=== PATIENT | male | born 1940 | race Caucasian/White ===

== ENCOUNTER 2025-03-06 02:05 | Inpatient (IN) | payer OTHER ==
[~2025-03-06] VITALS: Ht 172.7 cm; Wt 80.2 kg
--- NOTE | 2025-03-06 02:32 | ED.PDOC ---
Epistaxis- HPI HPI Comments 85 YEAR OLD MALE PRESENTS TO ER WITH COMPLAINTS OF NOSE BLEED X 45 MINS. PATIENT PRESENTS VIA EMS, STATING THAT HE STARTED EXPERIENCING A NOSE BLEED FROM BILATERAL NASAL FLARES 45 MINS PRIOR TO ARRIVAL TO ER WHEN HE WENT TO BLOW HIS NOSE AT HOME. NOTES HE DOES TAKE XARELTO 20 MG DAILY FOR PMH OF AFIB. PATIENT PRESENTS TO ER WITH HEAVY ACTIVE NOSE BLEEDING NOTED FROM BILATERAL NASAL FLARES WITH CLOTTING APPRECIATED AND BP 158/83, IN NO DISTRESS. PATIENT REPORTS THIS IS THE WORST NOSE BLEED HE'S EVER HAD. DENIES HEADACHE, INJURY, NOSE PICKING, DIZZINESS, N/V OR ANY FURTHER SYMPTOMS/COMPLAINTS Chief Complaint: Nose Bleed Time Seen by MD: 02:19 Primary Care Provider: UNKNOWN Reviewed Notes: Nurses Notes, Medications, Allergies Allergies: Coded Allergies: Penicillins (Verified Allergy, Unknown, 03/06/25) Home Meds Reported Medications Rivaroxaban (Xarelto Tablet) 20 Mg Tb, 1 TAB PO DAILY 03/06/25 Omeprazole ([facility] Omeprazole Odt) 20 Mg Tab, 40 MG PO DAILY 03/06/25 Tamsulosin Hcl (Tamsulosin Hcl) 0.4 Mg Cap, 0.4 MG PO DAILY 03/06/25 Atorvastatin Calcium (ATORVASTATIN CALCIUM) 20 Mg Tab, 20 MG PO HS 03/06/25 Donepezil Hydrochloride (DONEPEZIL HCL) 5 Mg Tab, 1 TAB PO DAILY 03/06/25 Memantine Hydrochloride (Memantine HCl) 10 Mg Tab, 1 TAB PO BID 03/06/25 Metoprolol Succinate (Metoprolol Succinate Er) 25 Mg Tab, 1 TAB PO DAILY 03/06/25 Information Source: Patient Mode of Arrival: EMS Past Medical History PAST MEDICAL HISTORY: AFIB, High Lipids, HTN Surgical History: Denies all surgeries Family History Family History: Unknown Social History Smoker: Non-Smoker Alcohol: Denies ETOH Use Drugs: Denies Drug Use Lives In: Home Constitutional: denies: chills, diaphoresis, fatigue, fever, malaise, sweats, weakness, others EENTM: reports: others ( STATED IN HPI) Respiratory: denies: cough, hemoptysis, orthopnea, SOB at rest, shortness of breath, SOB with excertion, stridor, wheezing, others Cardiovascular: denies: chest pain, dizzy spells, diaphoresis, Dyspnea on exertion, edema, irregular heart beat, left arm pain, lightheadedness, palpitations, PND, syncope, others Gastrointestinal: denies: abdomen distended, abdominal pain, blood streaked bowels, constipated, diarrhea, dysphagia, difficulty swallowing, hematemesis, melena, nausea, poor appetite, poor fluid intake, rectal bleeding, rectal pain, vomiting, others Genitourinary: denies: burning, dysuria, flank pain, frequency, hematuria, incontinence, penile discharge, penile sore, pain, testicle pain, testicle s welling, urgency, others Neurological: denies: dizziness, fainting, headache, left sided numbness, left sided weakness, numbness, paresthesia, pre-existing deficit, right sided numbness, right sided weakness, seizure, speech problems, tingling, tremors, weakness, others Musculoskeletal: denies: back pain, gout, joint pain, joint swelling, muscle pain, muscle stiffness, neck pain, others Integumetry: denies: bruises, change in color, change in hair/nails, dryness, laceration, lesions, lumps, rash, wounds, others Allergic/Immunocompromised: denies: Difficulty Healing, Frequent Infections, Hives, Itching, others Hematologic/Lymphatic: denies: anemia, blood clots, easy bleeding, easy bruising, swollen glands, others Endocrine: denies: excessive hunger, excessive sweating, excessive thirst, excessive urination, flushing, intolerance to cold, intolerance to heat, unexplained weight gain, unexplained weight loss, others Psychiatric: denies: anxiety, bipolar disorder, depression, hopeless, panic disorder, schizophrenia, sleepless, suicidal, others Physical Exam General Appearance: No Apparent Distress HEENT: PERRL/EOMI, Pharynx Normal, TMs Normal, Other (HEAVY ACTIVE BILATERAL NOSE BLEEDING NOTED, GREATER ON LEFT WITH CLOTTING APPRECIATED - UNABLE TO APPRECIATE SOURCE OF BLEEDING) Neck: Full Range of Motion, Non-Tender, Normal Respiratory: Chest Non-Tender, Lungs Clear, No Accessory Muscle Use, No Respiratory Distress, Normal Breath Sounds Cardiovascular: No Murmur, No Gallop, Regular Rate/Rhythm Breast Exam: Deferred Gastrointestinal: NOT DONE Genitalia: Deferred Pelvic: Deferred Rectal: Deferred Extremities: Normal capillary refill, Normal range of motion 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 Was a procedure done?: No Sedation Sedation?: No Differential Diagnosis (NSB) Differential Diagnosis: Anterior Nasal Bleed, Foreign Body, Hypertension, Coa gulopathy X-Ray, Labs, Meds, VS Vital Signs Date Time Temp Pulse Resp B/P (MAP) Pulse Ox O2 Delivery O2 Flow Rate FiO2 03/06/25 06:03 164/97 (119) 03/06/25 05:41 183/121 03/06/25 05:34 106 14 96 Room Air* 0 21 03/06/25 05:34 97.9 91 15 183/121 (141) 96 97.9 03/06/25 05:34 91 15 96 Room Air* 0 21 03/06/25 04:00 92 03/06/25 03:30 98.1 98 19 146/126 (133) 98 98.1 03/06/25 02:11 Room Air 03/06/25 02:11 98.2 85 16 158/83 (108) 96 98.2 03/06/25 02:11 98.2 85 16 158/83 (108) 96 98.2 Lab Test 03/06/25 02:32 Range/Units White Blood Count 4.0 L 4.4-10.8 10^3/uL Red Blood Count 4.41 L 4.5-5.90 10^6/uL Hemoglobin 12.9 L 13.5-17.5 g/dL Hematocrit 39.3 L 41.0-53.0 % Mean Corpuscular Volume 89.2 80.0-100.0 fL Mean Corpuscular Hemoglobin 29.4 28.0-32.0 pg Mean Corpuscular Hemoglobin Concent 32.9 32.0-36.0 g/dL Red Cell Distribution Width 15.9 H 11.8-14.3 % Platelet Count 124 L 140-450 10^3/uL Mean Platelet Volume 8.6 6.9-10.8 fL Neutrophils (%) (Auto) 62.2 37.0-80.0 % Lymphocytes (%) (Auto) 24.3 10.0-50.0 % Monocytes (%) (Auto) 10.7 0.0-12.0 % Eosinophils (%) (Auto) 2.1 0.0-7.0 % Basophils (%) (Auto) 0.7 0.0-2.0 % Neutrophils # (Auto) 2.5 1.6-8.6 10 ^3/uL Lymphocytes # (Auto) 1.0 0.4-5.4 10 ^3/uL Monocytes # (Auto) 0.4 0-1.3 10 ^3/uL Eosinophils # (Auto) 0.1 0-0.8 10 ^3/uL Basophils # (Auto) 0 0-0.2 10 ^3/uL Nucleated Red Blood Cells 0.1 % Prothrombin Time 13.5 H 9.3-11.8 sec Prothrombin Time INR 1.31 H 0.9-1.15 Activated Partial Thromboplast Time 34.6 H 24.5-34.5 SEC Sodium Level 142 136-145 mmol/L Potassium Level 4.3 3.5-5.1 mmol/L Chloride Level 108 H 98-107 mmol/L Carbon Dioxide Level 27 20-31 mmol/L Anion Gap 7 5-15 Blood Urea Nitrogen 22 9-23 mg/dL Creatinine 1.18 0.700-1.30 mg/dL Glomerular Filtration Rate Calc 61 >90 mL/min BUN/Creatinine Ratio 18.6 10.0-20.0 Serum Glucose 119 H 74-106 mg/dL Calcium Level 9.3 8.7-10.4 mg/dL Current Medications Medications (Trade) Dose Ordered Sig/Fabian Route Start Time Stop Time Status Last Admin Sodium Chloride 500 ml @ 500 mls/hr Q1H ONCE IV 03/06/25 05:00 03/06/25 05:59 DC 03/06/25 05:28 Hydralazine HCl (Apresoline Injection) 5 mg ONCE ONCE IV 03/06/25 05:30 03/06/25 05:31 DC 03/06/25 05:41 CBC REVIEWED - HEMOGLOBIN 12.9, PLATELETS 124 BMP REVIEWED WITHOUT ANY SIGNIFICANT ABNORMALITY PT/PTTT REVIEWED- PT 13.5, PT INR 1.31 TYPE AND SCREEN ORDERED AFRIN AND NOSE WAS PINCHED USING 2 TONGUE DEPRESSORS WITHOUT SUCCESS LEFT SIDED POSTERIOR RHINO-ROCKET PLACED AT BEDSIDE BY DR. ISAAC- PATIENT TOLERATED WELL WITHOUT ANY COMPLICATION PATIENT RESTING COMFORTABLY AT BEDSIDE, IN NO DISTRESS WITH BLEEDING FROM BILAT ERAL NASAL FLARES CONTROLLED POST RHINO-ROCKET PLACEMENT PATIENT ON XARELTO 20 MG WITH LEFT SIDED POSTERIOR RHINO-ROCKET PLACED PATIENT REQUIRES ADMISSION FOR NEED FOR OBSERVATION [facility] AUTHORIZATION TO ADMIT - [id number] Time of 1ST Reevaluation: 02:30 Reevaluation 1ST: N/A Patient Education/Counseling: Diagnosis, Treatment, Prognosis, Need For Follow Up Family Education/Counseling: No Family Present Departure 1 Departure Time of Disposition: 04:36 Impression: Primary Impression: Posterior epistaxis Additional Impression: Thrombocytopenia Disposition: 09 ADMITTED INPATIENT Condition: Stable Critical Care Note Critical Care Time?: No Stability Stability form required: No Heart Score Heart Score: Heart Score Response (Comments) Value History N/A 0 EKG N/A 0 Age N/A 0 Risk Factors N/A 0 Troponin N/A 0 Total 0 RAÚL MUNIZ Mar 06, 2025 02:32
[2025-03-06] MEDS: OXYMETAZOLINE HCL 0.05 % NASAL SPRAY 15ML EACHNOSTRI ONE (02:52)
[2025-03-06 02:54] LABS: Basophils # (auto) 0 10 ^3/uL (0-0.2); Basophils % (auto) 0.7 % (0.0-2.0); Eosinophils # (auto) 0.1 10 ^3/uL (0-0.8); Eosinophils % (auto) 2.1 % (0.0-7.0); Hematocrit 39.3 % (41.0-53.0); Hemoglobin 12.9 g/dL (13.5-17.5); Lymphocytes % (auto) 24.3 % (10.0-50.0); Mean Corpuscular Hemoglobin 29.4 pg (28.0-32.0); Mean Corpuscular Hgb Conc. 32.9 g/dL (32.0-36.0); Mean Corpuscular Volume 89.2 fL (80.0-100.0); Monocytes # (auto) 0.4 10 ^3/uL (0-1.3); Monocytes % (auto) 10.7 % (0.0-12.0); Neutrophils # (auto) 2.5 10 ^3/uL (1.6-8.6); Neutrophils % (auto) 62.2 % (37.0-80.0); Nucleated Red Blood Cells % 0.1 %; Platelet Count (auto) 124 10^3/uL (140-450); Red Blood Cells 4.41 10^6/uL (4.5-5.90); Red Cell Distribution Width 15.9 % (11.8-14.3)
[2025-03-06 03:12] LABS: INR 1.31 (0.9-1.15); Partial Thromboplastin Time 34.6 SEC (24.5-34.5); Prothrombin Time 13.5 sec (9.3-11.8)
[2025-03-06 03:20] LABS: Potassium 4.3 mmol/L (3.5-5.1); Sodium 142 mmol/L (136-145)
[2025-03-06 03:21] LABS: Anion Gap 7 (5-15); Calcium 9.3 mg/dL (8.7-10.4); Carbon Dioxide 27 mmol/L (20-31); Chloride 108 mmol/L (98-107)
[2025-03-06 03:26] LABS: BUN/Creatinine Ratio 18.6 (10.0-20.0); Blood Urea Nitrogen 22 mg/dL (9-23)
[2025-03-06 03:33] LABS: Glucose 119 mg/dL (74-106)
[2025-03-06] MEDS: THROMBIN (BOVINE) 5000 UNIT SOL VIAL ONE (03:38)
[2025-03-06] MEDS: LIDOCAINE 1%-Mpf/Epinephrine 1:200,000 30ml VIAL ONE (03:39)
[2025-03-06] MEDS: LIDOCAINE W/ EPINEPHRINE 1.5 % INJ 5ML AMP IJ ONE (05:27)
[2025-03-06] MEDS: SODIUM CHLORIDE 0.9% 500 ML IV ONE (05:28)
[2025-03-06] MEDS: THROMBIN (BOVINE) 5000 UNIT SOL VIAL TP ONE (05:28)
[2025-03-06 05:34] VITALS: PULSE 106; PULSE 91; RESP 14; RESP 15; O2SAT 96
[2025-03-06] MEDS: hydrALAZINE HCL 20 MG/ML VL IV ONE (05:41)
--- NOTE | 2025-03-06 07:33 | DVH ---
EXAM: CT Head Without Intravenous Contrast CLINICAL INDICATION: R/O stroke TECHNIQUE: Axial computed tomography images of the head/brain without intravenous contrast. This CT exam was performed using one or more of the following dose reduction techniques: automated exposure control, adjustment of the mA and/or kV according to patient size, and/or use of iterative reconstru ction technique. CONTRAST: RADIATION DOSE: CTDIvol = 53.73 mGy, DLP = 970.61 mGy-cm COMPARISON: None FINDINGS: BRAIN AND EXTRA-AXIAL SPACES: No acute intracranial hemorrhage, midline shift or mass effect. If sy mptoms persist, further evaluation with MRI is recommended. The cerebral and cerebellar sulci are pr ominent consistent with brain atrophy. Areas of decreased attenuation in the deep cerebral white mat ter are consistent with small vessel ischemic/degenerative changes. BONES/JOINTS: Unremarkable. No acute fracture. SOFT TISSUES: Unremarkable. SINUSES: Air-fluid levels in the maxillary sinuses, likely sinus disease. MASTOID AIR CELLS: Unremarkable as visualized. No mastoid effusion. OTHER FINDINGS: . . IMPRESSION: 1. No acute intracranial hemorrhage, midline shift or mass effect. If symptoms persist, further eval uation with MRI is recommended. 2. Generalized brain atrophy. 3. Small vessel ischemic/degenerative changes.
[2025-03-06] MEDS ORDERED: HYDROcodone-ACET 5/325MG TAB PO PRN (07:45)
[2025-03-06] MEDS ORDERED: DOCUSATE SOD 100 MG CAP PO PRN (07:45)
[2025-03-06] MEDS ORDERED: ACETAMINOPHEN 325 MG TAB PO PRN (07:45)
[2025-03-06] MEDS ORDERED: ONDANSETRON HCL 4 MG/2 ML VIAL IV PRN (07:45)
[2025-03-06] MEDS ORDERED: METO25TA93 PO (07:51)
[2025-03-06] MEDS ORDERED: ATOR20TA50 PO (07:51)
[2025-03-06] MEDS ORDERED: TAMS0.4C39 PO (07:51)
[2025-03-06] MEDS ORDERED: MEMA1TAB5 PO (07:51)
[2025-03-06] MEDS ORDERED: OMEP-411 PO (07:51)
[2025-03-06] MEDS ORDERED: DONE5TAB80 PO (07:51)
--- NOTE | 2025-03-06 07:59 | DVHHP2 ---
History of Present Illness Reason for Visit: Nose bleed History of Present Illness Tamir Subramanian is an 85-year-old male with past medical history of dementia, hypertension, hyperlipidemia, BPH, and atrial fibrillation, who came in for a nose bleed. At time of assessment, patient was confused, unable to tell me what year it is, who the president is, where he is, or exactly what happened and why hi is in the hospital. He was telling me that he was outside with his neighbor helping him when the nose bleed began and the ambulance picked him up outside the house and his didn't know where he was. The nurse at the bedside, stated this was not his norm when he came in. States he was A&O x [address] of head was completed, no acute findings. Patient's outside medications reveal he is being treated for dementia/Alzheimer. 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 Smoke: No ALCOHOL: none Drugs: None Lives: with Family Domestic Violence: Neg Review of Systems Constitutional: No: Fever, Chills, Sweats, Weakness, Malaise, Other Eyes: No: Pain, Vision change, Conjunctivae inflammation, Eyelid inflammation, Other, Redness ENT: Nose discharge (nose bleed for 45 minutes); No: Ear pain, Ear discharge, Nose pain, Nose congestion, Mouth pain, Mouth swelling, Throat pain, Throat swelling, Other Respiratory: No: Cough, Dry, Shortness of breath, SOB with excertion, Wheezing, Hemoptysis, Pleuritic Pain, Sputum, Wheezing, Other Cardiovascular: No: Chest Pain, Palpitations, Orthopnea, Paroxysmal Noc. Dyspne a, Edema, Lt Headedness, Other Gastrointestinal: No: Nausea, Vomiting, Abdominal Pain, Diarrhea, Constipation, Melena, Hematochezia, Other Genitourinary: No Dysuria, No Frequency, No Incontinence, No Hematuria, No Retention, No Other Musculoskeletal: No: other, neck pain, shoulder pain, arm pain, back pain, hand pain, leg pain, foot pain Skin: No: Rash, Lesions, Jaundice, Bruising, Other Neurological: No: Weakness, Numbness, Incoordination, Change in speech, Confusion, Seizures, Other Allergies: Coded Allergies: Penicillins (Verified Allergy, Unknown, 03/06/25) Medications Current Medications Medications Dose Ordered Sig/Fabian Route Start Time Stop Time Status Last Admin Dose Admin Sodium Chloride 10 ml Q8HR IV 03/06/25 14:00 UNV Acetaminophen/ Hydrocodone Bitart 1 tab Q4HP PRN PO 03/06/25 07:45 UNV Ondansetron HCl 4 mg Q4HP PRN IV 03/06/25 07:45 UNV Docusate Sodium 100 mg BIDPRN PRN PO 03/06/25 07:45 UNV Exam Vital Signs Vital Signs Date Time Temp Pulse Resp B/P (MAP) Pulse Ox O2 Delivery O2 Flow Rate FiO2 03/06/25 06:03 164/97 (119) 03/06/25 05:34 106 14 96 Room Air* 0 21 03/06/25 05:34 97.9 97.9 General Appearance: Cooperative, mild distress, Other (Alert to self) HEENT: Atraumatic, PERRLA, Other (epistaxis with rhino rocket in left brock) Respiratory: Clear to auscultation, Normal air movement Cardiovascular: Normal S1, Normal S2, Other (atrial fibrillation) Abdominal: Normal bowel sounds, Soft Extremities: No clubbing, No cyanosis, No edema, Normal pulses Skin: No rashes, No breakdown, No significant lesion Neuro: Normal gait, Normal speech, Strength at 5/5 X4 ext Psych/Mental Status: Mental status NL, Mood NL Labs/Xrays Labs Test 03/06/25 02:32 Range/Units White Blood Count 4.0 L 4.4-10.8 10^3/uL Red Blood Count 4.41 L 4.5-5.90 10^6/uL Hemoglobin 12.9 L 13.5-17.5 g/dL Hematocrit 39.3 L 41.0-53.0 % Mean Corpuscular Volume 89.2 80.0-100.0 fL Mean Corpuscular Hemoglobin 29.4 28.0-32.0 pg Mean Corpuscular Hemoglobin Concent 32.9 32.0-36.0 g/dL Red Cell Distribution Width 15.9 H 11.8-14.3 % Platelet Count 124 L 140-450 10^3/uL Mean Platelet Volume 8.6 6.9-10.8 fL Neutrophils (%) (Auto) 62.2 37.0-80.0 % Lymphocytes (%) (Auto) 24.3 10.0-50.0 % Monocytes (%) (Auto) 10.7 0.0-12.0 % Eosinophils (%) (Auto) 2.1 0.0-7.0 % Basophils (%) (Auto) 0.7 0.0-2.0 % Neutrophils # (Auto) 2.5 1.6-8.6 10 ^3/uL Lymphocytes # (Auto) 1.0 0.4-5.4 10 ^3/uL Monocytes # (Auto) 0.4 0-1.3 10 ^3/uL Eosinophils # (Auto) 0.1 0-0.8 10 ^3/uL Basophils # (Auto) 0 0-0.2 10 ^3/uL Nucleated Red Blood Cells 0.1 % Prothrombin Time 13.5 H 9.3-11.8 sec Prothrombin Time INR 1.31 H 0.9-1.15 Activated Partial Thromboplast Time 34.6 H 24.5-34.5 SEC Sodium Level 142 136-145 mmol/L Potassium Level 4.3 3.5-5.1 mmol/L Chloride Level 108 H 98-107 mmol/L Carbon Dioxide Level 27 20-31 mmol/L Anion Gap 7 5-15 Blood Urea Nitrogen 22 9-23 mg/dL Creatinine 1.18 0.700-1.30 mg/dL Glomerular Filtration Rate Calc 61 >90 mL/min BUN/Creatinine Ratio 18.6 10.0-20.0 Serum Glucose 119 H 74-106 mg/dL Calcium Level 9.3 8.7-10.4 mg/dL EXAM: CT Head Without Intravenous Contrast FINDINGS: BRAIN AND EXTRA-AXIAL SPACES: No acute intracranial hemorrhage, midline shift or mass effect. If symptoms persist, further evaluation with MRI is recommended. The cerebral and cerebellar sulci are prominent consistent with brain atrophy. Areas of decreased attenuation in the deep cerebral white matter are consistent with small vessel ischemic/degenerative changes. BONES/JOINTS: Unremarkable. No acute fracture. SOFT TISSUES: Unremarkable. SINUSES: Air-fluid levels in the maxillary sinuses, likely sinus disease. MASTOID AIR CELLS: Unremarkable as visualized. No mastoid effusion. OTHER FINDINGS: . . IMPRESSION: 1. No acute intracranial hemorrhage, midline shift or mass effect. If symptoms persist, further evaluation with MRI is recommended. 2. Generalized brain atrophy. 3. Small vessel ischemic/degenerative changes. Assessment/Plan Assessment/Plan Assessment: Likely anterior epistaxis, R/O posterior epistaxis Thrombocytopenia, Atrial fibrillation, Hypertension, Hyperlipidemia, Alzheimer, BPH, Plan: Admit to Med-Surg, Manage/Monitor CBC, Manage/Monitor bleeding, Mange/Monitor blood pressure, Home Xarelto held, Started on Lovenox therapeutic dose, Home medications reconciled, Plan discussed with: Patient My Orders Orders - MCKENZIE OCAMPO Procedure Category Date Status Time Head Without Contrast CT 03/06/25 Resulted 07:04 Admit ADMIT 03/06/25 Transmitted 07:41 Code Status CODE 03/06/25 Transmitted 07:41 2 Gm Sodium Diet DIET 03/06/25 Transmitted Breakfast Sodium Chloride Lock PHA 03/06/25 Transmitted (Saline Lock Ns) 14:00 Hydrocodone-Acet PHA 03/06/25 Transmitted 5/325mg Tab ([place] 07:45 Ondansetron Hcl PHA 03/06/25 Transmitted (Zofran) 07:45 Docusate Sodium PHA 03/06/25 Transmitted Capsule (Colace 07:45 Complete Blood Count LAB 03/07/25 Verified 04:00 Comprehensive LAB 03/07/25 Verified Metabolic Panel 04:00 Condition: Serious JOSE 03/06/25 Transmitted 07:41 Acetaminophen Tablet PHA 03/06/25 Transmitted (Tylenol Tablet) 07:45 Atorvastatin (Lipitor) PHA 03/06/25 Transmitted 22:00 Donepezil Tablet PHA 03/06/25 Transmitted (Aricept Tablet) 10:00 Tamsulosin PHA 03/06/25 Transmitted Hydrochloride (Flomax) 10:00 (Nf) Memantine PHA 03/06/25 Transmitted Hydrochloride 10:00 (Nf) Metoprolol PHA 03/06/25 Transmitted Succinate (Metoprolol 10:00 (Nf) Omeprazole ([facility]vs PHA 03/06/25 Transmitted Omeprazole Odt) 10:00 Date of Service: Mar 06, 2025 Billing Provider: MCKENZIE OCAMPO Common Visit Codes: [id number] INP/OBS CARE (MOD) MCKENZIE OCAMPO Mar 06, 2025 07:59
[2025-03-06] MEDS ORDERED: RIV20T PO (08:00)
[2025-03-06 08:30] VITALS: PULSE 91; RESP 15; O2SAT 95
[2025-03-06] MEDS ORDERED: METOPROLOL SUCCINATE XL 50 MG TAB PO SCH (10:00)
[2025-03-06] MEDS: TAMSULOSIN HYDROCHLORIDE 0.4 MG CAP PO SCH (10:13)
[2025-03-06] MEDS: MEMANTINE HCL 5 MG TAB PO SCH (10:13)
[2025-03-06] MEDS: PANTOPRAZOLE 40 MG TAB PO ONE (10:13)
[2025-03-06] MEDS: DONEPEZIL HYDROCHLORIDE 5 MG TAB PO SCH (10:13)
[2025-03-06] MEDS: METOPROLOL SUCCINATE XL 50 MG TAB PO SCH (10:14)
[2025-03-06] MEDS ORDERED: hydrALAZINE HCL 20 MG/ML VL IV PRN (10:30)
[2025-03-06] MEDS: ENOXAPARIN SOD 80 MG/0.8ML SYRINGE SC SCH (11:20)
[2025-03-06] MEDS: SODIUM CHLOR 0.9% PF (SALINE LOCK) 10ML VIAL/SYR IV SCH (14:11)
[2025-03-06 20:00] VITALS: PULSE 88; RESP 16; O2SAT 96
[2025-03-06 21:40] VITALS: BP 144/86; PULSE 83; RESP 19; TEMP 98.5; O2SAT 94
[2025-03-06] MEDS: ATORVASTATIN 20 MG TAB PO SCH (21:55)
[2025-03-06 22:08] VITALS: BP 144/86; PULSE 83; RESP 18; RESP 19; TEMP 98.5; O2SAT 94
[2025-03-07 05:00] VITALS: BP 143/86; PULSE 87; RESP 18; TEMP 98.1; O2SAT 93
[2025-03-07] MEDS: PANTOPRAZOLE 40 MG TAB PO SCH (06:01)
[2025-03-07 07:13] LABS: Alanine Aminotransferase 18 U/L (7-40); Anion Gap 11 (5-15); Aspartate Aminotransferase 30 U/L (13-40); BUN/Creatinine Ratio 20.2 (10.0-20.0); Bilirubin, Total 0.7 mg/dL (0.2-1.0); Blood Urea Nitrogen 21 mg/dL (9-23); Calcium 9.4 mg/dL (8.7-10.4); Carbon Dioxide 23 mmol/L (20-31); Chloride 106 mmol/L (98-107); Potassium 4.3 mmol/L (3.5-5.1); Sodium 140 mmol/L (136-145); Total Protein 6.1 g/dL (5.7-8.2)
[2025-03-07 07:15] LABS: Basophils # (auto) 0 10 ^3/uL (0-0.2); Basophils % (auto) 0.3 % (0.0-2.0); Eosinophils # (auto) 0 10 ^3/uL (0-0.8); Eosinophils % (auto) 0.4 % (0.0-7.0); Hematocrit 35.2 % (41.0-53.0); Hemoglobin 11.8 g/dL (13.5-17.5); Lymphocytes # (auto) 0.8 10 ^3/uL (0.4-5.4); Lymphocytes % (auto) 13.8 % (10.0-50.0); Mean Corpuscular Hemoglobin 29.6 pg (28.0-32.0); Mean Corpuscular Hgb Conc. 33.5 g/dL (32.0-36.0); Mean Corpuscular Volume 88.3 fL (80.0-100.0); Monocytes # (auto) 0.5 10 ^3/uL (0-1.3); Monocytes % (auto) 9.5 % (0.0-12.0); Neutrophils # (auto) 4.3 10 ^3/uL (1.6-8.6); Nucleated Red Blood Cells % 0.1 %; Platelet Count (auto) 122 10^3/uL (140-450); Red Blood Cells 3.99 10^6/uL (4.5-5.90); Red Cell Distribution Width 15.6 % (11.8-14.3); White Blood Cell 5.7 10^3/uL (4.4-10.8)
[2025-03-07 07:16] LABS: Alkaline Phosphatase 41 U/L (46-116); Glucose 114 mg/dL (74-106)
[2025-03-07 09:00] VITALS: BP 144/93; PULSE 89; RESP 18; TEMP 98; O2SAT 97
[2025-03-07 13:00] VITALS: BP 142/89; PULSE 84; RESP 18; TEMP 98.1; O2SAT 98
--- NOTE | 2025-03-07 13:18 | DVHDS2 ---
Discharge Summary Date of Admission Mar 06, 2025 at 07:41 Date of Discharge: Mar 07, 2025 Admitting Diagnosis Epistaxis Labs/Diagnostic Data: Laboratory Results Test 03/07/25 05:10 03/06/25 02:32 White Blood Count 5.7 10^3/uL (4.4-10.8) Red Blood Count 3.99 10^6/uL (4.5-5.90) Hemoglobin 11.8 g/dL (13.5-17.5) Hematocrit 35.2 % (41.0-53.0) Mean Corpuscular Volume 88.3 fL (80.0-100.0) Mean Corpuscular Hemoglobin 29.6 pg (28.0-32.0) Mean Corpuscular Hemoglobin Concent 33.5 g/dL (32.0-36.0) Red Cell Distribution Width 15.6 % (11.8-14.3) Platelet Count 122 10^3/uL (140-450) Mean Platelet Volume 8.9 fL (6.9-10.8) Neutrophils (%) (Auto) 76.0 % (37.0-80.0) Lymphocytes (%) (Auto) 13.8 % (10.0-50.0) Monocytes (%) (Auto) 9.5 % (0.0-12.0) Eosinophils (%) (Auto) 0.4 % (0.0-7.0) Basophils (%) (Auto) 0.3 % (0.0-2.0) Neutrophils # (Auto) 4.3 10 ^3/uL (1.6-8.6) Lymphocytes # (Auto) 0.8 10 ^3/uL (0.4-5.4) Monocytes # (Auto) 0.5 10 ^3/uL (0-1.3) Eosinophils # (Auto) 0 10 ^3/uL (0-0.8) Basophils # (Auto) 0 10 ^3/uL (0-0.2) Nucleated Red Blood Cells 0.1 % Sodium Level 140 mmol/L (136-145) Potassium Level 4.3 mmol/L (3.5-5.1) Chloride Level 106 mmol/L (98-107) Carbon Dioxide Level 23 mmol/L (20-31) Anion Gap 11 (5-15) Blood Urea Nitrogen 21 mg/dL (9-23) Creatinine 1.04 mg/dL (0.700-1.30) Glomerular Filtration Rate Calc 71 mL/min (>90) BUN/Creatinine Ratio 20.2 (10.0-20.0) Serum Glucose 114 mg/dL (74-106) Calcium Level 9.4 mg/dL (8.7-10.4) Total Bilirubin 0.7 mg/dL (0.2-1.0) Aspartate Amino Transferase (AST) 30 U/L (13-40) Alanine Aminotransferase (ALT) 18 U/L (7-40) Alkaline Phosphatase 41 U/L (46-116) Total Protein 6.1 g/dL (5.7-8.2) Albumin 4.0 g/dL (3.2-4.8) Prothrombin Time 13.5 sec (9.3-11.8) Prothrombin Time INR 1.31 (0.9-1.15) Activated Partial Thromboplast Time 34.6 SEC (24.5-34.5) Other Laboratory Tests 03/07/25 05:10 Brief Hx & Hospital Course: History of Present Illness Tamir Subramanian is an 85-year-old male with past medical history of dementia, hypertension, hyperlipidemia, BPH, and atrial fibrillation, who came in for a nose bleed. At time of assessment, patient was confused, unable to tell me what year it is, who the president is, where he is, or exactly what happened and why hi is in the hospital. He was telling me that he was outside with his neighbor helping him when the nose bleed began and the ambulance picked him up outside the house and his didn't know where he was. The nurse at the bedside, stated this was not his norm when he came in. States he was A&O x [address] of head was completed, no acute findings. Patient's outside medications reveal he is being treated for dementia/Alzheimer. Course of hospitalization: Patient was CT scan of the head which was unremarkable. Patient was given rhino rocket, IV hydration, with patient was home anticoagulation being held. Patient was now found to be of baseline status per his family's assessment. Patient will be discharged home with rhino rocket being removed and the patient was being free of epistaxis. He was instructed to follow up with his PCP in 1-2 weeks. And continue all previous home medications. Physical examination General: Alert and Oriented x3. No acute distress. Well-nourished. Eyes: EOMI. Anicteric. HENT: Moist mucous membranes. Lungs: Clear to auscultation bilaterally. No accessory muscle use. Cardiovascular: Regular rate and rhythm. No murmur. No JVD. Abdomen: Soft, non-tender and non-distended. No palpable masses. Extremities: No edema. Non-tender. Skin: No rashes or lesions. Warm. Neurologic: No focal neurological deficits. CN II-XII grossly intact, but not individually tested. Psychiatric: Cooperative. Appropriate mood and affect. Total time spent with patient discussing and formulating plan of care: 35 minutes. This medical document was created using an electronic medical record system with [employer] system. Although this document has been carefully reviewed, there may still be some phonetic and typographical errors. These areas are purely typographical due to imperfections of the software programs, and do not reflect any compromise in the patient's medical care. Condition at Discharge: Good Final Diagnosis/Problems List Metabolic Encephalopathy Discharge Disposition: Home Discharge Instruct/Medications Diet: Consistent carbohydrate, Cardiac 2g Na,low cholest Activity: No Restrictions, As Tolerated Follow Up/Referral: PcP in 1-2 weeks Medications: continue all home medications 36 Discharge Statement: "Patient was advised to return to the ER or call 911 if any headaches, dizziness, shortness of breath, chest pain, abdominal pain, bleeding, fevers, or worsening of medical condition. Patient was counseled about treatment plan, medications, possible side effects, patientverbalized understanding. All questions were answered to the best of my ability. This discharge took greater then 30 minutes in planning, reviewing documentation, counseling the patient, and discussing with other team members." ASSESSMENT ASSESSMENT Assessment Metabolic Encephalopathy Date of Service: Mar 07, 2025 Billing Provider: AILYN DUPREE NP Common Visit Codes: [id number]/OBS DISCH DAY >30min AILYN DUPREE NP Mar 07, 2025 13:18
== END 2025-03-07 15:05 | disposition home or self-care (01) | DRG 304 ==
LOC: EDBD 02:05 → ER 02:05 → OVERFLOW 07:41 → WEST WING 21:24
PROVIDERS: ADMIT Nurse Practitioner Acute Care; ATTEND Nurse Practitioner Acute Care
DX: I16.0 Hypertensive urgency (principal); G93.41 Metabolic encephalopathy; D69.6 Thrombocytopenia, unspecified; N40.0 Benign prostatic hyperplasia without lower urinary tract symptoms; G30.9 Alzheimer's disease, unspecified; E78.5 Hyperlipidemia, unspecified; F02.80 Dementia in other diseases classified elsewhere, unspecified severity, without behavioral disturbance, psychotic disturbance, mood disturbance, and anxiety; Z88.0 Allergy status to penicillin; Z79.899 Other long term (current) drug therapy; Z79.01 Long term (current) use of anticoagulants; I10 Essential (primary) hypertension
CPT/HCPCS: 36415; 70450; 80048; 80053; 85025; 85610; 85730; 86850; 86900; 86901; G0378